=== PATIENT | female | born 1960 | race Caucasian/White ===

== ENCOUNTER → 2016-09-12 | Outpatient (CLI) | payer BC ==
[~2016-09-12] MED LIST: ASPIRIN 81MG TA81 MG PO; BYDUREON PEN2 MG SC; CARAFATE1 GM PO; GLIMEPIRIDE 4MG4 MG PO; LEVOTHYROXINE0.05 MG NG; METFORMIN1000 MG PO; NIACIN50 MG PO; OMEPRAZOLE20 MG PO; SIMVASTATIN10 MG PO
--- NOTE | 2016-09-12 16:59 | RADIOLOGY REPORT PS360 ---
US SUBMANDIBULAR (PAROTID ETC) CLINICAL INDICATION: PAROTITIS ORDERING PHYSICIAN: Efe Grey MD PATIENT AGE: 56 years COMPARISON: None FINDINGS: The parotid glands appear enlarged bilaterally. On the right there is a heterogeneous area of echogenicity in the upper aspect of the parotid gland at 16 x 8 mm with some increased echogenicity. This is nonspecific. The left parotid gland is also enlarged. There is a 10 mm cystic area in the upper pole on the left and a 6 x 6 mm area of complex echogenicity in the lower pole on the left. There is a 12 x 9 mm area of heterogeneous echogenicity in the lower pole on the left. IMPRESSION: Enlarged parotid gland bilaterally with bilateral nodular lesions. These are nonspecific. Recommend further evaluation with CT scan without and with contrast. At least one of the nodules appears cystic on the left in the upper pole at 10 mm. Other solid nodules also noted.
== END ==
LOC: RAD 13:25
DX: K11.21 Acute sialoadenitis (principal)